=== PATIENT | female | born 1940 | race Caucasian/White ===

== ENCOUNTER → 2017-07-21 | Outpatient (CLI) | payer OTHER ==
[2017-07-21 14:40] LABS: ALANINE AMINOTRANSFERASE 18 Units/L (12-78); ALKALINE PHOSPHATASE 68 Units/L (46-116); ASPARTATE AMINO TRANSFERASE 23 Units/L (15-37); BLOOD UREA NITROGEN 13 mg/dL (7-18); C-REACTIVE PROTEIN < 0.50 mg/L (0-3.0); CALCIUM 9.1 mg/dL (8.5-10.1); CARBON DIOXIDE 27.2 mmol/L (21-32); CHLORIDE 103 mmol/L (98-107); COR NA(FOR HYPERGLY) 140 mmol/L (136-145); CREATININE 1.05 mg/dL (0.55-1.02); SODIUM 139 mmol/L (136-145); TOTAL PROTEIN 7.1 g/dL (6.4-8.2); eGFR BLACK RACES > 60 (>60); eGFR NON BLACK RACES 54 (>60)
[2017-07-21 14:42] LABS: BASOPHILS % (AUTO) 0.7 % (0.2-1.0); EOSINOPHILS # (AUTO) 0.1 x10^3/uL (0.0-0.2); HEMATOCRIT 35.3 % (36.0-47.0); HEMOGLOBIN 11.8 g/dL (12.0-16.0); LYMPHOCYTES # (AUTO) 1.6 X10^3/uL (1.3-2.9); LYMPHOCYTES % (AUTO) 24.5 % (21.0-51.0); MEAN CORPUSCULAR HEMOGLOBIN 28.6 pg (27.0-34.0); MEAN CORPUSCULAR HGB CONC 33.4 g/dL (33.0-35.0); MEAN CORPUSCULAR VOLUME 85.5 fL (80.0-100.0); MEAN PLATELET VOLUME 7.8 fL (7.4-11.0); MONOCYTES # (AUTO) 0.6 x10^3/uL (0.3-0.8); MONOCYTES % (AUTO) 8.5 % (0.0-13.0); NEUTROPHILS # (AUTO) 4.3 x10^3/uL (2.2-4.8); NEUTROPHILS % (AUTO) 65.3 % (42.0-75.0); PLATELET COUNT 249 X10^3/uL (150.0-450.0); RED BLOOD COUNT 4.13 X10^6/uL (3.5-5.4); RED CELL DISTRIBUTION WIDTH 14.7 % (11.6-16.5); WHITE BLOOD COUNT 6.6 X10^3/uL (3.6-10.0)
[2017-07-21 14:51] LABS: BILIRUBIN,URINE NEGATIVE (NEGATIVE); BLOOD/HEMOGLOBIN,URINE 2+ (NEGATIVE); GLUCOSE, URINE NEGATIVE (NEGATIVE); KETONES,URINE NEGATIVE (NEGATIVE); LEUKOCYTE ESTERASE ,URINE 1+ (NEGATIVE); NITRITES,URINE NEGATIVE (NEGATIVE); PROTEIN,URINE NEGATIVE (NEGATIVE); UROBILINOGEN,URINE NORMAL (NORMAL)
[2017-07-21 14:59] LABS: APPEARANCE,URINE CLEAR (CLEAR); BACTERIA,URINE TRACE /HPF (NEGATIVE); COLOR,URINE PALE YELLOW (YELLOW); SQUAMOUS EPITHELIAL CELL,UR FEW /HPF (NEGATIVE)
--- NOTE | 2017-07-21 15:21 | RAD ---
Examination: Chest, PA and lateral views History: Preop TKA Comparison reference: None Findings: Normal heart size, arteriosclerotic aorta, clear lungs and pleural spaces. Shoulder arthrop athy is present, right greater than left. Impression: No acute chest disease demonstrated. Reported By:
[2017-07-21 15:32] LABS: ERYTHROCYTE SEDIMENTATION RATE 13 MM/HOUR (0-20)
== END ==
LOC: LAB 12:57
PROVIDERS: ATTEND Specialist
DX: Z01.818 Encounter for other preprocedural examination (principal); Z01.810 Encounter for preprocedural cardiovascular examination; Z01.811 Encounter for preprocedural respiratory examination; Z79.899 Other long term (current) drug therapy; Z79.01 Long term (current) use of anticoagulants; Z11.8 Encounter for screening for other infectious and parasitic diseases; M17.11 Unilateral primary osteoarthritis, right knee
CPT/HCPCS: 36415; 71020; 80053; 81001; 85025; 85610; 85652; 85730; 86140; 86850; 86900; 86901; 87640; 87641; 93005; 93010

== ENCOUNTER 2017-07-25 07:27 | Inpatient (IN) | payer OTHER ==
[~2017-07-25 07:27] MED LIST: ANCEF VIAL 1 GM ONE; D5 LR 1000 ML 1,000 ML IV ONE
[2017-07-25] MEDS ORDERED: NS 100 ML IV 0 ML IV ONE (07:28)
[2017-07-25] MEDS ORDERED: BACTROBAN OINT ONE (07:50)
[2017-07-25] MEDS ORDERED: NAROPIN 0.75% EPI ONE (08:07)
[2017-07-25] MEDS ORDERED: DILAUDID INJ ONE (08:09)
[2017-07-25] MEDS ORDERED: FENTANYL INJ 250 mcg ONE ×2 (08:09→10:24)
[2017-07-25 08:14] VITALS: BMI 19.6
[2017-07-25] MEDS ORDERED: FLUVIRIN IM ONE (08:14)
[2017-07-25] MEDS ORDERED: HYDROGEN PEROXIDE 3% ONE (08:50)
[2017-07-25] MEDS ORDERED: NS IRRIGATION 1000 ML 1,000 ML with BACITRACIN VIAL 50,000 UNT, POLYMYXIN B SULFATE 500... IR ONE ×3 (09:32)
[2017-07-25] MEDS ORDERED: NS IRRIGATION 3000 ML 3,000 ML with BACITRACIN VIAL 50,000 UNT, POLYMYXIN B SULFATE 500... IR ONE ×6 (09:32)
[2017-07-25] MEDS ORDERED: DIPRIVAN VIAL ONE (09:41)
[2017-07-25] MEDS ORDERED: ATROPINE SULFATE ONE (09:41)
[2017-07-25] MEDS ORDERED: VERSED ONE (09:41)
[2017-07-25] MEDS ORDERED: NORCURON INJ 10 MG VIAL ONE (09:41)
[2017-07-25] MEDS ORDERED: ULTANE GAS IN ONE (09:41)
[2017-07-25] MEDS ORDERED: ZEMURON ONE (09:41)
[2017-07-25] MEDS ORDERED: QUELICIN (OR ANECTINE) ONE (09:41)
[2017-07-25] MEDS ORDERED: LR 1000 ML IV 1,000 ML IV ONE (11:43)
[2017-07-25] MEDS ORDERED: DILAUDID INJ IVP PRN (13:01)
[2017-07-25] MEDS ORDERED: BENADRYL INJ 50 MG VIAL IVP PRN (13:01)
[2017-07-25] MEDS ORDERED: PHENERGAN INJ 25 MG IVP PRN (13:01)
[2017-07-25] MEDS ORDERED: ZOFRAN INJ 4 MG VIAL IVP PRN ×2 (13:01→14:08)
[2017-07-25] MEDS ORDERED: REGLAN INJ 10 MG VIAL IVP PRN (13:01)
[2017-07-25] MEDS ORDERED: MORPHINE SULFATE PCA 30 MG IV PRN (13:12)
[2017-07-25] MEDS ORDERED: ANCEF VIAL 1 GM 1 GM in NS 50 ML IV + SPIKE MINIBAG* 50 ML IV SCH (14:00)
--- NOTE | 2017-07-25 14:04 | RAD ---
Indication: Postop. Exam: Right knee series Technique: AP and lateral views Findings: There is a metallic prosthesis in the femoral condyle and tibial plateau which are held in place with methylmethacrylate and appear in good position. No fracture or dislocation is seen. There are postop changes along the patella posteriorly which is otherwise intact . There is subcutaneous ai r and edema in the soft tissues anteriorly and extending into the joint space. There is a surgical dr karyn in place superiorly. The bones are osteopenic. Impression: Status post total right knee replacement with postop changes as above. Reported By:
[2017-07-25] MEDS: ANCEF 1 GM IV PREMIX* 1 GM/50 ML BAG IV SCH ×2 (14:05→21:42)
[2017-07-25] MEDS: NS 1000 ML 1,000 ML IV SCH ×2 (14:05→18:15)
[2017-07-25] MEDS ORDERED: TYLENOL 325 MG TAB PO PRN (14:08)
[2017-07-25] MEDS ORDERED: CHLORASEPTIC SPRAY MT PRN (15:46)
[2017-07-25] MEDS: MORPHINE SULFATE INJ 2 MG INJ IVP PRN ×2 (15:55→21:37)
[2017-07-25] MEDS: LOVENOX INJ 40 MG SYR SC SCH (21:39)
[2017-07-25] MEDS: NORCO 5/325 MG TAB PO PRN (23:56)
[2017-07-25] MEDS: PHENERGAN INJ 25 MG IV PRN (23:57)
[2017-07-26 05:50] LABS: CARBON DIOXIDE 25.7 mmol/L (21-32); CREATININE 1.27 mg/dL (0.55-1.02)
[2017-07-26 05:51] LABS: BASOPHILS % (AUTO) 0.1 % (0.2-1.0); HEMATOCRIT 22.5 % (36.0-47.0); LYMPHOCYTES # (AUTO) 0.8 X10^3/uL (1.3-2.9); LYMPHOCYTES % (AUTO) 9.1 % (21.0-51.0); MEAN CORPUSCULAR HEMOGLOBIN 29.3 pg (27.0-34.0); MEAN CORPUSCULAR HGB CONC 34.2 g/dL (33.0-35.0); MEAN CORPUSCULAR VOLUME 85.6 fL (80.0-100.0); MEAN PLATELET VOLUME 8.3 fL (7.4-11.0); MONOCYTES # (AUTO) 1.1 x10^3/uL (0.3-0.8); MONOCYTES % (AUTO) 11.7 % (0.0-13.0); NEUTROPHILS # (AUTO) 7.4 x10^3/uL (2.2-4.8); NEUTROPHILS % (AUTO) 79.1 % (42.0-75.0); PLATELET COUNT 166 X10^3/uL (150.0-450.0); RED BLOOD COUNT 2.63 X10^6/uL (3.5-5.4); RED CELL DISTRIBUTION WIDTH 14.6 % (11.6-16.5); WHITE BLOOD COUNT 9.3 X10^3/uL (3.6-10.0)
[2017-07-26] MEDS: ANCEF 1 GM IV PREMIX* 1 GM/50 ML BAG IV SCH ×3 (05:51→22:00)
[2017-07-26] MEDS: NS 1000 ML 1,000 ML IV SCH ×3 (05:51→18:05)
[2017-07-26 06:57] LABS: HEMOGLOBIN 7.7 g/dL (12.0-16.0); PLATELET MORPHOLOGY COMMENT NORMAL (NORMAL)
[2017-07-26] MEDS: NORCO 5/325 MG TAB PO PRN ×4 (07:51→22:33)
[2017-07-26] MEDS: LOVENOX INJ 40 MG SYR SC SCH (08:29)
[2017-07-26] MEDS ORDERED: NS 500 ML IV 500 ML IV ONE ×2 (09:50→21:15)
[2017-07-26] MEDS ORDERED: BENADRYL INJ 50 MG VIAL IVP PRN (09:51)
--- NOTE | 2017-07-26 11:37 | PCM.PROG ---
Progress Note - Progress Note for Day of Date: 07/26/17 (POD 1) - Subjective Subjective: Doing well. pain controlled by PO meds.Drain in place. Hb 7.7. we ill transfuse 2 units of PRBC. dressing cleana nd dry. no soakage. PT got her out of bed abd she walked. - Past Medical Family Social History Allergies: Allergies No Known Drug Allergies Allergy (Verified 07/25/17 08:14) - Vital Signs and I&O's Vital Signs: Temperature 98.4 F Pulse Rate [Right Radial] 90 Pulse Rate 77 Respiratory Rate 20 Blood Pressure [Right Arm] 132/73 Blood Pressure 164/70 O2 Sat by Pulse Oximetry 99 Intake and Output: Intake & Output 07/23/17 07/24/17 07/25/17 07/26/17 11:59 11:59 11:59 11:59 Intake Total 1315 Output Total 5640 Balance -4325 - Physical Exam Mood Description: Calm Speech Pattern: Delayed - Laboratory and Diagnostics Result Diagrams: 07/26/17 03:40 07/26/17 03:40 Labs: Laboratory WBC 9.3 X10^3/uL (3.6-10.0) 07/26/17 03:40 RBC 2.63 X10^6/uL (3.5-5.4) L 07/26/17 03:40 Hgb 7.7 g/dL (12.0-16.0) L 07/26/17 03:40 Hct 22.5 % (36.0-47.0) L 07/26/17 03:40 MCV 85.6 fL (80.0-100.0) 07/26/17 03:40 MCH 29.3 pg (27.0-34.0) 07/26/17 03:40 MCHC 34.2 g/dL (33.0-35.0) 07/26/17 03:40 RDW 14.6 % (11.6-16.5) 07/26/17 03:40 Plt Count 166 X10^3/uL (150.0-450.0) 07/26/17 03:40 Plt Count Comment Adequate (ADEQUATE) 07/26/17 03:40 MPV 8.3 fL (7.4-11.0) 07/26/17 03:40 Neut % 79.1 % (42.0-75.0) H 07/26/17 03:40 Lymph % 9.1 % (21.0-51.0) L 07/26/17 03:40 Price % 11.7 % (0.0-13.0) 07/26/17 03:40 Eos % 0.0 % (0.9-2.9) L 07/26/17 03:40 Baso % 0.1 % (0.2-1.0) L 07/26/17 03:40 Neut # 7.4 x10^3/uL (2.2-4.8) H 07/26/17 03:40 Lymph # 0.8 X10^3/uL (1.3-2.9) L 07/26/17 03:40 Price # 1.1 x10^3/uL (0.3-0.8) H 07/26/17 03:40 Eos # 0.0 x10^3/uL (0.0-0.2) 07/26/17 03:40 Baso # 0.0 X10^3/uL (0.0-0.1) 07/26/17 03:40 Absolute Nucleated RBC 0.0 /100WBC 07/26/17 03:40 Plt Morphology Comment Normal (NORMAL) 07/26/17 03:40 RBC Morphology Normal (NORMAL) 07/26/17 03:40 Sodium 138 mmol/L (136-145) 07/26/17 03:40 Corrected Sodium 139 mmol/L (136-145) 07/26/17 03:40 Potassium 4.7 mmol/L (3.5-5.1) 07/26/17 03:40 Chloride 105 mmol/L (98-107) 07/26/17 03:40 Carbon Dioxide 25.7 mmol/L (21-32) 07/26/17 03:40 BUN 24 mg/dL (7-18) H 07/26/17 03:40 Creatinine 1.27 mg/dL (0.55-1.02) H 07/26/17 03:40 Est GFR (MDRD) Af Amer 52 (>60) L 07/26/17 03:40 Est GFR (MDRD) Non-Af 43 (>60) L 07/26/17 03:40 Glucose 140 mg/dL (65-99) H 07/26/17 03:40 Calcium 8.0 mg/dL (8.5-10.1) L 07/26/17 03:40 - Plan (1) Total knee replacement status Status: Acute Plan: PT. PO pain meds. PRBC transfusion. Plan on DC tomorrow- FU 4 weks. XR 4 weeks. dressing change every 3 days. staple removal 3 weeks
--- NOTE | 2017-07-26 13:05 | PCM.PROG ---
Progress Note - Progress Note for Day of Date: 07/26/17 - Subjective Subjective: IS STATUS POST RIGHT TOTAL KNEE REPLACMENT. SURGERY WAS DONE YESTERDAY BY . CONSULTED US FOR MEDICAL CONSULT. TODAY , PATIENT IS ALERT AND ORIENTED, LYING IN BED ON MORNING ROUNDS. SHE IS NOTED WITH COMPLAINTS OF RIGHT KNEE PAIN AND WEAKNESS. ON EXAMINATION, PATIENT IS PALE IN COLOR, HEART IS NORMAL IN RATE AND RHYTHM. SHE IS CURRENTLY UTILIZING OXYGEN VIA NASAL CANNULA AT 2L/MIN. LUNGS ARE CLEAR TO AUSCULTATION BILATERALLY. ABDOMEN IS ROUND, SOFT, AND NON-TENDER WITH NORMAL BOWEL SOUNDS NOTED IN ALL QUADRANTS. RIGHT KNEE IS NOTED WITH A SURGICAL DRESSING. DRESSING DRY AND INTACT WITH NO SIGNS OR SX INFECTION NOTED TO AREA. THERE IS A HEMOVAC IN PLACE THAT APPEARS TO BE DRAINING PROPERLY. SCD AND ZEINAB HOSE ARE NOTED BILATERALLY. HER VITAL SIGNS THIS MORNING ARE 97.4-69-12-100%-135/62. ABNORMAL LAB VALUES INCLUDE THE FOLLOWING: RBC 2.63, HGB 7.7, HCT 22.5, BUN 24, CREATININE 1.27, GLUCOSE 140, CALCIUM 8.0. PHYSICAL THERAPY AND OCCUPATIONAL THERAPY WILL EVALUATE AND WORK WITH PATIENT TODAY. WE WILL TRANSFUSE 2 UNITS OF PRBC TODAY. OTHERWISE, WE WILL CONTINUE WITH CURRENT PLAN OF CARE. WE WILL FOLLOW UP WITH AM LABS AND CONTINUE TO MONITOR PATIENT. - Past Medical Family Social History Past Med/Fam/Surg Hx: No changes since H&P Allergies: Allergies No Known Drug Allergies Allergy (Verified 07/25/17 08:14) - Review of Systems ROS: No change since H&P - Vital Signs and I&O's Vital Signs: Temperature 98.4 F Pulse Rate [Right Radial] 90 Pulse Rate 77 Respiratory Rate 20 Blood Pressure [Right Arm] 132/73 Blood Pressure 164/70 O2 Sat by Pulse Oximetry 99 Intake and Output: Intake & Output 07/24/17 07/25/17 07/26/17 07/27/17 11:59 11:59 11:59 11:59 Intake Total 1315 Output Total 5640 Balance -4325 - Physical Exam Oriented: Normal. negative: Time, Person, Place, Not Oriented, Unable to test, Other Eyes: Normal. negative: Blurred Vision, Diplopia, Discharge, Pain, Redness, Photophobia, Other Ear: Normal. negative: Right, Left, Swelling, Ecchymosis, Hemotypanum, Abrasion , Laceration Nose: Normal. negative: Injected, Discharge, Blood, Other Throat: Normal. negative: Tonsillar Hypertrophy, Red, Exudate, Dry, Other Respiratory: Normal. negative: Right, Left, Generalized, Superior, Inferior, Diminished, Wheezes, Rales, Rhonchi, OTHER Cardiovascular: Normal. negative: Tachycardia, Bradycardia, Irregular, S3, S4, Systolic, Diastolic, Murmur, Edema, Other : Normal. negative: Dysuria, Hematuria, Frequency, Discharge, Testicular Pain , Bleeding, , Other Auscultation: Bowel Sounds: Normal Palpation: Normal Tenderness: Normal. negative: Rebound, Guarding, Rigidity Skin: Wound (RIGHT KNEE SURGICAL WOUND ) Musculoskeletal: Normal. negative: Right, Left, Shoulder, Clavicle, Arm, Elbow , Forearm, Wrist, Hand, Hip, Thigh, Knee, Leg, Ankle, Foot, Back:Thoracic, Back: Lumbar, Back:Midline, Back:Paraspinous, Pelvis, Swelling, Tender, Deformity, Pulse Deficit, Motor Deficit, Sensory Deficit, Instability, Crepitance Psychiatric: Normal Mood Description: Calm Affect: Normal Speech Pattern: Clear - Laboratory and Diagnostics Result Diagrams: 07/26/17 03:40 07/26/17 03:40 Labs: Laboratory WBC 9.3 X10^3/uL (3.6-10.0) 07/26/17 03:40 RBC 2.63 X10^6/uL (3.5-5.4) L 07/26/17 03:40 Hgb 7.7 g/dL (12.0-16.0) L 07/26/17 03:40 Hct 22.5 % (36.0-47.0) L 07/26/17 03:40 MCV 85.6 fL (80.0-100.0) 07/26/17 03:40 MCH 29.3 pg (27.0-34.0) 07/26/17 03:40 MCHC 34.2 g/dL (33.0-35.0) 07/26/17 03:40 RDW 14.6 % (11.6-16.5) 07/26/17 03:40 Plt Count 166 X10^3/uL (150.0-450.0) 07/26/17 03:40 Plt Count Comment Adequate (ADEQUATE) 07/26/17 03:40 MPV 8.3 fL (7.4-11.0) 07/26/17 03:40 Neut % 79.1 % (42.0-75.0) H 07/26/17 03:40 Lymph % 9.1 % (21.0-51.0) L 07/26/17 03:40 [place] % 11.7 % (0.0-13.0) 07/26/17 03:40 Eos % 0.0 % (0.9-2.9) L 07/26/17 03:40 Baso % 0.1 % (0.2-1.0) L 07/26/17 03:40 Neut # 7.4 x10^3/uL (2.2-4.8) H 07/26/17 03:40 Lymph # 0.8 X10^3/uL (1.3-2.9) L 07/26/17 03:40 [place] # 1.1 x10^3/uL (0.3-0.8) H 07/26/17 03:40 Eos # 0.0 x10^3/uL (0.0-0.2) 07/26/17 03:40 Baso # 0.0 X10^3/uL (0.0-0.1) 07/26/17 03:40 Absolute Nucleated RBC 0.0 /100WBC 07/26/17 03:40 Plt Morphology Comment Normal (NORMAL) 07/26/17 03:40 RBC Morphology Normal (NORMAL) 07/26/17 03:40 Sodium 138 mmol/L (136-145) 07/26/17 03:40 Corrected Sodium 139 mmol/L (136-145) 07/26/17 03:40 Potassium 4.7 mmol/L (3.5-5.1) 07/26/17 03:40 Chloride 105 mmol/L (98-107) 07/26/17 03:40 Carbon Dioxide 25.7 mmol/L (21-32) 07/26/17 03:40 BUN 24 mg/dL (7-18) H 07/26/17 03:40 Creatinine 1.27 mg/dL (0.55-1.02) H 07/26/17 03:40 Est GFR (MDRD) Af Amer 52 (>60) L 07/26/17 03:40 Est GFR (MDRD) Non-Af 43 (>60) L 07/26/17 03:40 Glucose 140 mg/dL (65-99) H 07/26/17 03:40 Calcium 8.0 mg/dL (8.5-10.1) L 07/26/17 03:40 Blood Type A POSITIVE 07/26/17 10:11 Antibody Screen Negative 07/26/17 10:11 Crossmatch See Detail 07/26/17 10:11 - Plan (1) Total knee replacement status Status: Acute Plan: PT/OT, CONTINUE PO PAIN MEDS, CONTINUE DRESSING CHANGES AND WOUND CARE, CONTINUE TO MONITOR (2) Anemia Status: Acute Qualifiers: Anemia type: other cause Other causes of anemia: acute posthemorrhagic Qualified Code(s): D62 - Acute posthemorrhagic anemia Plan: TRANSFUSE 2 UNITS PRBC, CONTINUE TO MONITOR
[2017-07-26] MEDS ORDERED: PATIENT'S HOME MEDICATION (Memantine Hcl [Namenda] 5 MG) PO SCH (13:15)
[2017-07-26] MEDS: ZOCOR TAB 20 MG PO SCH (15:08)
[2017-07-26] MEDS: ZANTAC PO SCH (15:08)
[2017-07-26] MEDS: PAXIL PO SCH (15:08)
--- NOTE | 2017-07-26 17:14 | OR.GENERIC ---
Post-Op Note Generic - Post-Op Note Operative Report: PREOPERATIVE DIAGNOSIS: Degenerative arthritis of the right knee. POSTOPERATIVE DIAGNOSIS: Degenerative arthritis of the right knee. PROCEDURE PERFORMED: right Total knee replacement BLOOD LOSS: 150 cc. ANESTHESIA: General. IMPLANT USED FOR PROCEDURE: Navid Triathlon size 3 femur on the left with #3 size peg tibial tray, a #19 mm polyethylene insert and this a Posterior stabilized component. 31 size patella. GROSS INTRAOPERATIVE FINDINGS: Degenerative ferguson of three compartments of the trochlea, the medial, as well as the lateral femoral condyles as well was the plateau. severe genu varum and flexion deformity. multiple loose bodies in the posterior part ogf the knee. HISTORY: This is a 76-year-old female with complaints of right knee pain for several years and increased intensity in the past several months where it has affected her activities of daily living. She attempted conservative treatment, which includes anti-inflammatory medications as well as cortisone and Synvisc. This has only provided her with temporary relief. she has had a rt tkr done 10 yrs ago and she wants her right knee to be done now. It is for that reason, she elected to undergo the above-named procedure. All risks as well as complications were discussed with the patient, which include, but are not limited to infection, deep vein thrombosis, pulmonary embolism, need for further surgery, and further pain. she has agreed to undergo this procedure and a consent was obtained preoperatively. limb was marked. got adductor canal block. got appropriate antibiotics. PROCEDURE: The patient was wheeled back to operating room and was placed supine on the operating room table. At this time, a nonsterile tourniquet was placed on the right upper thigh, but not inflated. An Esmarch was then used to exsanguinate the extremity and the left extremity was then prepped and draped in the usual sterile fashion for this procedure. The tourniquet was then inflated to 325 mmHg. At this time, a standard midline incision was made. medial parapatellar arthrotomy was completed. medial release of proximl tibia, fat pad excision, ant femoral synovium excision was ompleted. Medail and lateral meniscua and ACL and PCL was excised.the patella was everted. At this time with a better exposure of the proximal tibia, we placed external tibial guide. This was placed with longitudinal axis of the tibia and carefully positioned in order to obtain an optimal cut for the proximal tibia. At this time with careful soft tissue retraction and protection, an oscillating saw was used to make a proximal tibial osteotomy. Prior to the osteotomy, the cut was checked with a depth gauge in order to assure appropriate bony resection. At this time, I then used a drill to cannulate the distal femoral canal in order to place the intramedullary guide. Distal femroal osteotomy was completed. siz 3 femur was determined. Epicondylar axis was determined. 4 in 1 block placed and bone cuts complted. posterior osteophytes removed with osteotome and curette. box cut finished. The block was then removed and an osteotome was then used to remove all the bony cut pieces. Once this was removed, we then implanted our trial components of size 3 to the femur and a size 3 mm tibial tray with 19 mm plastic articulating surface. The knee was taken through range of motion and revealed excellent femorotibial articulation. The patella was prepared free hand and its inital thickness maintained. At this time, the prosthesis was removed. A Hal retractor was then reinserted and replaced peg tibial tray in order to peg the proximal tibia. Once the drill holes were performed, we then copiously irrigated the wound and then suctioned it dry to get ready and prepped for cementation of the drilled components. At this time, polymethyl methacrylate cement was then mixed. The cement was placed on the tibial surface as well as the underneath surface of the component. The component was then placed and impacted with excess cement removed. In a similar fashion, the femoral and atellar component was also placed. A 19 mm plastic tray was then placed and the leg held in full extension and compression in order to obtain adequate bony cement content. Once the cement was fully hardened , the knee was flexed and a small osteotome was used to remove any extruding cement from around the prosthesis of the bone. Once this was performed, copious irrigation was used to irrigate the wound and the wound was then suctioned dry. We decided to go with a #19 mm polyethylene tray. At this time, this was placed to the tibial articulation and then left in place. This was rechecked with careful attention to detail with checking no soft tissue interpositioned between the polyethylene tray and the metal tray of the tibia. The knee was again taken through range of motion and revealed excellent tracking of the patella with good femur and tibial contact. A drain was placed and cut to length. At this time, the knee was irrigated and copiously suction dried. #1-0 Ethibond suture was then used to approximate the medial parapatellar arthrotomy in figure -of-eight fashion. A tight capsular closure was performed. This was reinforced with a #1-0 running Vicryl suture. At this time, the knee was again taken through range of motion to assure tight capsular closure. At this time, copious irrigation was used to irrigate the superficial wound. #2-0 Vicryl was used to approximate the wound with [id number] inverted suture. The skin was then approximated with thais. The leg was then cleansed. Sterile dressing consisting of Adaptic, 4x4, ABDs, and Kerlix roll were then applied. At this time, the patient was extubated and transferred to recovery in stable condition. Prognosis is good for this patient.post op xrays were satisfactory.
[2017-07-26] MEDS: NAMENDA TAB 10 MG PO SCH (20:47)
[2017-07-26] MEDS ORDERED: ARICEPT TAB 10 MG PO SCH (21:00)
[2017-07-26] MEDS: MORPHINE SULFATE INJ 2 MG INJ IVP PRN (21:04)
[2017-07-26] MEDS: PHENERGAN INJ 25 MG IV PRN (22:26)
[2017-07-27 05:35] LABS: CALCIUM 7.8 mg/dL (8.5-10.1); CARBON DIOXIDE 24.8 mmol/L (21-32); CREATININE 1.17 mg/dL (0.55-1.02)
[2017-07-27 05:38] LABS: BASOPHILS % (AUTO) 0.2 % (0.2-1.0); HEMOGLOBIN 8.7 g/dL (12.0-16.0); LYMPHOCYTES # (AUTO) 1.2 X10^3/uL (1.3-2.9); LYMPHOCYTES % (AUTO) 11.3 % (21.0-51.0); MEAN CORPUSCULAR HEMOGLOBIN 30.3 pg (27.0-34.0); MEAN CORPUSCULAR HGB CONC 34.6 g/dL (33.0-35.0); MEAN CORPUSCULAR VOLUME 87.4 fL (80.0-100.0); MEAN PLATELET VOLUME 8.2 fL (7.4-11.0); MONOCYTES # (AUTO) 1.4 x10^3/uL (0.3-0.8); MONOCYTES % (AUTO) 12.8 % (0.0-13.0); NEUTROPHILS % (AUTO) 75.7 % (42.0-75.0); PLATELET COUNT 124 X10^3/uL (150.0-450.0); RED BLOOD COUNT 2.86 X10^6/uL (3.5-5.4); RED CELL DISTRIBUTION WIDTH 15.5 % (11.6-16.5); WHITE BLOOD COUNT 10.6 X10^3/uL (3.6-10.0)
[2017-07-27] MEDS: ANCEF 1 GM IV PREMIX* 1 GM/50 ML BAG IV SCH (05:51)
[2017-07-27] MEDS: MORPHINE SULFATE INJ 2 MG INJ IVP PRN (06:26)
[2017-07-27] MEDS ORDERED: LOTENSIN TAB 10 MG PO SCH (09:00)
[2017-07-27] MEDS ORDERED: NORVASC TAB 5 MG PO SCH (09:00)
[2017-07-27] MEDS: NAMENDA TAB 10 MG PO SCH (09:11)
[2017-07-27] MEDS: ZANTAC PO SCH (09:11)
[2017-07-27] MEDS: PAXIL PO SCH (09:11)
[2017-07-27] MEDS: LOVENOX INJ 40 MG SYR SC SCH (09:11)
[2017-07-27] MEDS: NORCO 5/325 MG TAB PO PRN (09:12)
[2017-07-27] MEDS: ZOCOR TAB 20 MG PO SCH (09:12)
[2017-07-27 12:14] VITALS: BP 107/53
== END 2017-07-27 12:30 | disposition home health service (06) | DRG 556 ==
LOC: MED/SURG 07:27
PROVIDERS: ADMIT Orthopaedic Surgery; ATTEND Internal Medicine
PROC: 3E0234Z Introduction of Serum, Toxoid and Vaccine into Muscle, Percutaneous Approach (ICD-10-PCS; 2017-07-25)
PROC: 0SRC0JA Replacement of Right Knee Joint with Synthetic Substitute, Uncemented, Open Approach (ICD-10-PCS; principal; 2017-07-26)
PROC: 30233N1 Transfusion of Nonautologous Red Blood Cells into Peripheral Vein, Percutaneous Approach (ICD-10-PCS; 2017-07-26)
PROC: 30233N1 Transfusion of Nonautologous Red Blood Cells into Peripheral Vein, Percutaneous Approach (ICD-10-PCS; 2017-07-26)
DX: M25.561 Pain in right knee (principal); M17.11 Unilateral primary osteoarthritis, right knee; I25.10 Atherosclerotic heart disease of native coronary artery without angina pectoris; K21.9 Gastro-esophageal reflux disease without esophagitis; D62 Acute posthemorrhagic anemia; Z23 Encounter for immunization
CPT/HCPCS: 36415; 36430; 64447; 73560; 80048; 85025; 86850; 86900; 86901; 86922; 94640; 94762; 97535; 99100; A4216; A4222; P9016; J0330; J0690; J1170; J1200; J1650; J2250; J2270; J2405; J2550; J3010; J3490; J7120